=== PATIENT | male | born 1995 | race African-American/Black ===

== ENCOUNTER 2018-12-25 09:02 | Emergency (ER) | payer SELFPAY ==
[2018-12-25] MEDS ORDERED: Ondansetron PF 4 MG/2 ML Vial ONE (09:19)
[2018-12-25] MEDS ORDERED: Dicyclomine 20 MG TAB ONE (09:19)
[2018-12-25] MEDS ORDERED: Pantoprazole 40 MG VIAL ONE (09:20)
[2018-12-25] MEDS ORDERED: Ketorolac Tromethamine 30 MG/ML VIAL ONE (09:30)
[2018-12-25] MEDS ORDERED: Dexamethasone 4 mg/ml Vial ONE (09:30)
[2018-12-25 09:44] LABS: Hemoglobin 15.1 g/dL (14.0-18.0); Mean Corpuscular HGB CONC 32.3 g/dL (32.0-36.0); Mean Corpuscular Hemoglobin 26.3 pg (27.0-31.0); Mean Corpuscular Volume 81.6 fL (78.0-98.0); Mean Platelet Volume 8.1 fL (7.4-10.4); Platelet Count 223 thou/uL (130-400); RBC Distribution Width 12.9 % (11.5-14.5); Red Blood Cell (RBC) Count 5.74 mill/uL (4.70-6.10); White Blood Cell (WBC) Count 7.9 thou/uL (4.8-10.8)
[2018-12-25 09:56] LABS: ALT (SGPT) 9 U/L (8-55); AST (SGOT) 21 U/L (5-34); Alkaline Phosphatase 67 U/L (40-150); Anion Gap 12 mmol/L (10-20); BUN (Urea Nitrogen) 11 mg/dL (8.9-20.6); Bilirubin, Total 0.3 mg/dL (0.2-1.2); Calc. Creatinine Clearance 0 mL/min (70-130); Calcium 9.4 mg/dL (7.8-10.44); Carbon Dioxide 27 mmol/L (22-29); Chloride 103 mmol/L (98-107); Estimated GFR-MDRD Greater than 90; Globulin 3.9 g/dL (2.4-3.5); Glucose 96 mg/dL (70-105); Potassium 3.8 mmol/L (3.5-5.1); Protein, Total 7.9 g/dL (6.0-8.3); Sodium 138 mmol/L (136-145)
[2018-12-25 10:07] LABS: Band 12 % (5-11); Lymphocytes 6 % (21-51); MDiff Complete? YES; Monocytes 4 % (0-10); Neutrophil 78 % (42-75); Platelet Morphology Comment Appears Adequate
--- NOTE | 2018-12-25 10:09 | RAD ---
CHEST 2 VIEWS: HISTORY: Cough and fever. COMPARISON: None. FINDINGS: Some low-grade linear atelectasis in the right middle lobe and right lower lobe. No pneumothorax. N o effusion. No confluent airspace consolidation. IMPRESSION: No acute intrathoracic abnormality. POS: [facility]
== END 2018-12-25 10:51 | disposition home or self-care (01) ==
LOC: ERS 09:02
DX: J20.9 Acute bronchitis, unspecified (principal); F17.200 Nicotine dependence, unspecified, uncomplicated
CPT/HCPCS: 36415; 71046; 80053; 85025; 87081; 87430; 87804; 96361; 96374; 96375; C9113; J1100; J1885; J2405